=== PATIENT | female | born 1975 | race Caucasian/White ===

== ENCOUNTER 2022-06-20 17:22 | Emergency (ER) | payer MEDICAID ==
[~2022-06-20] VITALS: Ht 165.1 cm; Wt 122.5 kg
[2022-06-20 17:22] VITALS: BP_SYST 151
--- NOTE | 2022-06-20 17:27 | NUR ---
Patient triaged and placed in waiting room. VSS and patient appears in no acute distress at this time. Accompanied by SELF, awaiting available bed, and MD notified of need for MSE.
--- NOTE | 2022-06-20 17:40 | NUR ---
PT STATES THAT SHE WOKE UP THIS AM WITH PAIN TO LEFT FOOT/ANKLE. DENIES ANY INJURY OR TRAUMA. PT STATES SWELLING AND LIMITED ROM DUE TO PAIN.
--- NOTE | 2022-06-20 17:56 | NUR ---
DR CHUA OUT TO TRIAGE ROOM FOR EVALUATION
[2022-06-20] MEDS ORDERED: ONDA-8 TL (18:34)
[2022-06-20] MEDS ORDERED: LIDO1ADH71 TD (18:34)
[2022-06-20] MEDS ORDERED: HYDR-3917 PO ×2 (18:34→18:38)
[2022-06-20 20:01] VITALS: BP_SYST 151
--- NOTE | 2022-06-20 20:03 | NUR ---
Patient given written and verbal discharge instructions and verbalizes understanding. ER MD discussed with patient the results and treatment provided. Patient in stable condition. ID arm band removed. Rx of [place], Lidocaine and Zofran given. Patient educated on pain management and to follow up with PMD. Pain Scale 2/10. Opportunity for questions provided and answered. Medication side effect fact sheet provided.
== END 2022-06-20 20:01 | disposition home or self-care (01) ==
LOC: SED 17:22
DX: M67.472 Ganglion, left ankle and foot (principal); Z79.899 Other long term (current) drug therapy
CPT/HCPCS: 99283